=== PATIENT | female | born 1945 | race Asian ===

== ENCOUNTER 2016-12-10 09:49 | Outpatient (CLI) | payer OTHER | END 2016-12-10 19:12 | disposition home or self-care (01) | LOC: RAD 09:49 | DX: M85.89 Other specified disorders of bone density and structure, multiple sites (principal) ==

== ENCOUNTER 2017-06-12 12:26 | Outpatient (CLI) | payer OTHER | END 2017-06-12 21:11 | disposition home or self-care (01) | LOC: RAD 12:26 | DX: M17.0 Bilateral primary osteoarthritis of knee (principal) ==

== ENCOUNTER 2017-06-19 11:23 | Outpatient (CLI) | payer OTHER ==
[2017-06-19 12:06] LABS: PLATELET COUNT 254 K/uL (152-353); POTASSIUM 3.2 mmol/L (3.6-5.2)
== END 2017-06-19 12:25 | disposition home or self-care (01) ==
LOC: LABW 11:23
PROVIDERS: Internal Medicine Nephrology
DX: I12.9 Hypertensive chronic kidney disease with stage 1 through stage 4 chronic kidney disease, or unspecified chronic kidney disease (principal); N18.3 Chronic kidney disease, stage 3 (moderate); Z90.5 Acquired absence of kidney
CPT/HCPCS: 36415; 80053; 81000; 82306; 82570; 83970; 84100; 84155; 85027

== ENCOUNTER 2017-09-15 14:34 | Outpatient (CLI) | payer OTHER ==
[2017-09-15 14:51] LABS: PLATELET COUNT 212 K/uL (152-353)
[2017-09-15 15:09] LABS: POTASSIUM 3.9 mmol/L (3.6-5.2)
== END 2017-09-15 19:42 | disposition home or self-care (01) ==
LOC: LAB 14:34
PROVIDERS: Nurse Practitioner Family
DX: I10 Essential (primary) hypertension (principal); K75.4 Autoimmune hepatitis; E87.6 Hypokalemia; N28.89 Other specified disorders of kidney and ureter; Z79.899 Other long term (current) drug therapy; Z51.81 Encounter for therapeutic drug level monitoring; E55.9 Vitamin D deficiency, unspecified
CPT/HCPCS: 80053; 80061; 82306; 83036; 84436; 84443; 85027

== ENCOUNTER 2018-01-06 08:39 | Outpatient (CLI) | payer OTHER | END 2018-01-06 19:13 | disposition home or self-care (01) | LOC: US 08:39 | DX: I10 Essential (primary) hypertension (principal) | CPT/HCPCS: 93306 ==

== ENCOUNTER 2018-01-21 13:59 | Outpatient (CLI) | payer OTHER ==
[2018-01-21 15:03] LABS: POTASSIUM 3.8 mmol/L (3.6-5.2)
== END 2018-01-21 23:24 | disposition home or self-care (01) ==
LOC: LABW 13:59
PROVIDERS: Internal Medicine Cardiovascular Disease
DX: I10 Essential (primary) hypertension (principal); Z79.01 Long term (current) use of anticoagulants; Z51.81 Encounter for therapeutic drug level monitoring
CPT/HCPCS: 36415; 80048

== ENCOUNTER 2018-01-23 08:36 | Outpatient (CLI) | payer OTHER | END 2018-01-23 19:22 | disposition home or self-care (01) | LOC: MAMMO 08:36 | DX: Z12.31 Encounter for screening mammogram for malignant neoplasm of breast (principal); Z13.820 Encounter for screening for osteoporosis; M85.89 Other specified disorders of bone density and structure, multiple sites ==

== ENCOUNTER 2018-06-01 10:34 | Outpatient (CLI) | payer OTHER ==
[2018-06-01 11:13] LABS: POTASSIUM 4.5 mmol/L (3.6-5.2)
== END 2018-06-01 19:55 | disposition home or self-care (01) ==
LOC: LABW 10:34
PROVIDERS: Internal Medicine Cardiovascular Disease
DX: R60.0 Localized edema (principal); R06.09 Other forms of dyspnea; Z79.899 Other long term (current) drug therapy
CPT/HCPCS: 36415; 80048; 83880

== ENCOUNTER 2018-06-10 08:40 | Outpatient (CLI) | payer OTHER | END 2018-06-10 19:15 | disposition home or self-care (01) | LOC: RESP 08:40 | DX: I10 Essential (primary) hypertension (principal) | CPT/HCPCS: 93306 ==

== ENCOUNTER 2018-06-23 11:56 | Outpatient (CLI) | payer OTHER ==
[2018-06-23 12:25] LABS: PLATELET COUNT 249 K/uL (152-353); POTASSIUM 3.8 mmol/L (3.6-5.2)
== END 2018-06-23 21:22 | disposition home or self-care (01) ==
LOC: LABW 11:56
PROVIDERS: Internal Medicine Nephrology
DX: N18.3 Chronic kidney disease, stage 3 (moderate) (principal); I10 Essential (primary) hypertension
CPT/HCPCS: 36415; 80053; 80061; 82043; 82570; 84155; 85027

== ENCOUNTER 2018-07-29 12:22 | Outpatient (CLI) | payer OTHER | END 2018-07-29 21:16 | disposition home or self-care (01) | LOC: LABW 12:22 | PROVIDERS: Internal Medicine Cardiovascular Disease | DX: Z79.899 Other long term (current) drug therapy (principal) | CPT/HCPCS: 36415; 80048 ==

== ENCOUNTER 2018-09-18 08:35 | Outpatient (CLI) | payer OTHER ==
[2018-09-18 09:23] LABS: PLATELET COUNT 255 K/uL (152-353)
[2018-09-18 09:38] LABS: POTASSIUM 3.8 mmol/L (3.6-5.2)
== END 2018-09-18 18:56 | disposition home or self-care (01) ==
LOC: US 08:35 → LABW 08:35 → US 09:00
PROVIDERS: Physician Assistant
DX: Z00.00 Encounter for general adult medical examination without abnormal findings (principal); Z13.6 Encounter for screening for cardiovascular disorders; Z87.891 Personal history of nicotine dependence; N18.3 Chronic kidney disease, stage 3 (moderate); I10 Essential (primary) hypertension
CPT/HCPCS: 36415; 80053; 84443; 85027

== ENCOUNTER 2018-10-22 10:40 | Outpatient (CLI) | payer OTHER ==
[2018-10-22 11:05] LABS: PLATELET COUNT 224 K/uL (152-353)
[2018-10-22 11:12] LABS: POTASSIUM 4.2 mmol/L (3.6-5.2)
== END 2018-10-22 21:51 | disposition home or self-care (01) ==
LOC: LABW 10:40
PROVIDERS: Internal Medicine Nephrology
DX: M19.90 Unspecified osteoarthritis, unspecified site (principal); I10 Essential (primary) hypertension; N18.3 Chronic kidney disease, stage 3 (moderate); K73.1 Chronic lobular hepatitis, not elsewhere classified; Z88.9 Allergy status to unspecified drugs, medicaments and biological substances; E55.9 Vitamin D deficiency, unspecified
CPT/HCPCS: 36415; 80053; 82570; 84155; 85027

== ENCOUNTER 2019-02-10 11:25 | Outpatient (CLI) | payer OTHER ==
[2019-02-10 12:02] LABS: PLATELET COUNT 259 K/uL (152-353)
[2019-02-10 12:33] LABS: POTASSIUM 3.9 mmol/L (3.6-5.2)
== END 2019-02-10 23:38 | disposition home or self-care (01) ==
LOC: LABW 11:25
PROVIDERS: Internal Medicine Nephrology
DX: I12.9 Hypertensive chronic kidney disease with stage 1 through stage 4 chronic kidney disease, or unspecified chronic kidney disease (principal); N18.3 Chronic kidney disease, stage 3 (moderate); K73.1 Chronic lobular hepatitis, not elsewhere classified; Z88.9 Allergy status to unspecified drugs, medicaments and biological substances; E55.9 Vitamin D deficiency, unspecified; M15.8 Other polyosteoarthritis
CPT/HCPCS: 36415; 80053; 82570; 84155; 85027

== ENCOUNTER 2019-05-05 09:41 | Outpatient (CLI) | payer OTHER ==
[2019-05-05 10:04] LABS: PLATELET COUNT 224 K/uL (152-353)
[2019-05-05 10:14] LABS: POTASSIUM 4.3 mmol/L (3.6-5.2)
== END 2019-05-05 20:06 | disposition home or self-care (01) ==
LOC: LABW 09:41
PROVIDERS: Nurse Practitioner Family
DX: M17.0 Bilateral primary osteoarthritis of knee (principal); M19.041 Primary osteoarthritis, right hand; M19.042 Primary osteoarthritis, left hand; M85.89 Other specified disorders of bone density and structure, multiple sites; R53.83 Other fatigue
CPT/HCPCS: 36415; 80053; 85027; 85651; 86140

== ENCOUNTER 2019-05-10 09:41 | Outpatient (CLI) | payer OTHER | END 2019-05-10 20:16 | disposition home or self-care (01) | LOC: RAD 09:41 | DX: M85.89 Other specified disorders of bone density and structure, multiple sites (principal) ==

== ENCOUNTER 2019-06-14 12:53 | Outpatient (CLI) | payer OTHER ==
[2019-06-14 13:42] LABS: PLATELET COUNT 269 K/uL (152-353)
[2019-06-14 13:47] LABS: POTASSIUM 4.5 mmol/L (3.6-5.2)
== END 2019-06-14 20:00 | disposition home or self-care (01) ==
LOC: LABW 12:53
PROVIDERS: Internal Medicine Nephrology
DX: E55.9 Vitamin D deficiency, unspecified (principal); K73.1 Chronic lobular hepatitis, not elsewhere classified; I12.9 Hypertensive chronic kidney disease with stage 1 through stage 4 chronic kidney disease, or unspecified chronic kidney disease; N18.3 Chronic kidney disease, stage 3 (moderate); Z88.9 Allergy status to unspecified drugs, medicaments and biological substances; M19.90 Unspecified osteoarthritis, unspecified site
CPT/HCPCS: 36415; 80069; 81000; 82652; 83735; 85027

== ENCOUNTER 2019-06-21 10:25 | Outpatient (CLI) | payer OTHER | END 2019-06-21 20:23 | disposition home or self-care (01) | LOC: US 10:25 | DX: I12.9 Hypertensive chronic kidney disease with stage 1 through stage 4 chronic kidney disease, or unspecified chronic kidney disease (principal); N18.3 Chronic kidney disease, stage 3 (moderate) ==

== ENCOUNTER 2019-09-03 10:58 | Outpatient (CLI) | payer OTHER ==
[2019-09-03 11:55] LABS: POTASSIUM 3.8 mmol/L (3.6-5.2)
[2019-09-03 12:15] LABS: PLATELET COUNT 212 K/uL (152-353)
== END 2019-09-03 16:00 | disposition home or self-care (01) ==
LOC: LABW 10:58
PROVIDERS: Nurse Practitioner Family
DX: G47.8 Other sleep disorders (principal); M17.0 Bilateral primary osteoarthritis of knee; M19.041 Primary osteoarthritis, right hand; M19.042 Primary osteoarthritis, left hand; M79.7 Fibromyalgia
CPT/HCPCS: 36415; 80053; 85027; 85651; 86140

== ENCOUNTER 2019-12-20 09:43 | Outpatient (CLI) | payer OTHER ==
[2019-12-20 10:13] LABS: PLATELET COUNT 243 K/uL (152-353)
[2019-12-20 10:24] LABS: POTASSIUM 3.8 mmol/L (3.6-5.2)
== END 2019-12-20 19:37 | disposition home or self-care (01) ==
LOC: LABW 09:43
PROVIDERS: Internal Medicine
DX: E55.9 Vitamin D deficiency, unspecified (principal); K73.1 Chronic lobular hepatitis, not elsewhere classified; N18.3 Chronic kidney disease, stage 3 (moderate); Z88.9 Allergy status to unspecified drugs, medicaments and biological substances; N17.8 Other acute kidney failure; M19.90 Unspecified osteoarthritis, unspecified site; I12.9 Hypertensive chronic kidney disease with stage 1 through stage 4 chronic kidney disease, or unspecified chronic kidney disease
CPT/HCPCS: 36415; 80053; 81000; 82306; 82570; 83970; 84100; 84155; 85027

== ENCOUNTER 2020-01-17 10:24 | Outpatient (CLI) | payer OTHER ==
[2020-01-17 10:58] LABS: POTASSIUM 3.8 mmol/L (3.6-5.2)
[2020-01-17 10:59] LABS: PLATELET COUNT 235 K/uL (152-353)
== END 2020-01-17 20:46 | disposition home or self-care (01) ==
LOC: LABW 10:24
PROVIDERS: Nurse Practitioner Family
DX: M17.0 Bilateral primary osteoarthritis of knee (principal); M19.041 Primary osteoarthritis, right hand; M19.042 Primary osteoarthritis, left hand; M79.7 Fibromyalgia; M85.89 Other specified disorders of bone density and structure, multiple sites
CPT/HCPCS: 36415; 80053; 85027; 85651; 86140

== ENCOUNTER 2020-02-21 17:29 | Outpatient (CLI) | payer OTHER | END 2020-02-21 21:18 | disposition home or self-care (01) | LOC: LAB 17:29 | PROVIDERS: Nurse Practitioner | DX: Z00.00 Encounter for general adult medical examination without abnormal findings (principal); Z13.820 Encounter for screening for osteoporosis; Z79.899 Other long term (current) drug therapy | CPT/HCPCS: 80061; 82306; 84439; 84443 ==

== ENCOUNTER 2020-03-23 10:18 | Outpatient (CLI) | payer OTHER | END 2020-03-23 19:18 | disposition home or self-care (01) | LOC: MAMMO 10:18 | DX: Z12.31 Encounter for screening mammogram for malignant neoplasm of breast (principal) ==

== ENCOUNTER 2020-06-15 09:29 | Outpatient (CLI) | payer OTHER ==
[2020-06-15 10:32] LABS: PLATELET COUNT 216 K/uL (152-353)
[2020-06-15 10:41] LABS: POTASSIUM 3.7 mmol/L (3.6-5.2)
== END 2020-06-15 19:02 | disposition home or self-care (01) ==
LOC: LABW 09:29
PROVIDERS: Internal Medicine
DX: E66.9 Obesity, unspecified (principal); M17.0 Bilateral primary osteoarthritis of knee; R29.898 Other symptoms and signs involving the musculoskeletal system; I10 Essential (primary) hypertension; Z79.899 Other long term (current) drug therapy
CPT/HCPCS: 36415; 80053; 80061; 81000; 82085; 82550; 83036; 83735; 84439; 84443; 85027; 85379; 85651

== ENCOUNTER 2020-06-19 14:24 | Outpatient (CLI) | payer OTHER ==
[2020-06-19 15:02] LABS: PLATELET COUNT 234 K/uL (152-353)
[2020-06-19 15:51] LABS: POTASSIUM 3.6 mmol/L (3.6-5.2)
== END 2020-06-19 20:34 | disposition home or self-care (01) ==
LOC: LABW 14:24
PROVIDERS: Internal Medicine Nephrology
DX: E55.9 Vitamin D deficiency, unspecified (principal); I10 Essential (primary) hypertension; N17.9 Acute kidney failure, unspecified; M19.90 Unspecified osteoarthritis, unspecified site; D64.9 Anemia, unspecified
CPT/HCPCS: 36415; 80053; 81000; 82728; 83550; 83970; 84155; 85027

== ENCOUNTER 2020-06-30 09:37 | Outpatient (CLI) | payer OTHER | END 2020-06-30 19:08 | disposition home or self-care (01) | LOC: MRI 09:37 | DX: M51.16 Intervertebral disc disorders with radiculopathy, lumbar region (principal) | CPT/HCPCS: A9576 ==

== ENCOUNTER 2020-12-08 09:17 | Outpatient (CLI) | payer OTHER ==
[2020-12-08 09:54] LABS: PLATELET COUNT 216 K/uL (152-353)
== END 2020-12-08 21:18 | disposition home or self-care (01) ==
LOC: LABW 09:17
PROVIDERS: ATTEND Internal Medicine Nephrology
DX: E55.9 Vitamin D deficiency, unspecified (principal); K73.1 Chronic lobular hepatitis, not elsewhere classified; N18.30 Chronic kidney disease, stage 3 unspecified; Z88.9 Allergy status to unspecified drugs, medicaments and biological substances; N17.9 Acute kidney failure, unspecified; M19.90 Unspecified osteoarthritis, unspecified site; M47.816 Spondylosis without myelopathy or radiculopathy, lumbar region; I12.9 Hypertensive chronic kidney disease with stage 1 through stage 4 chronic kidney disease, or unspecified chronic kidney disease
CPT/HCPCS: 36415; 80053; 81000; 82043; 82306; 82570; 83970; 84100; 84155; 85027

== ENCOUNTER 2021-04-25 09:39 | Outpatient (CLI) | payer OTHER | END 2021-04-25 23:00 | disposition home or self-care (01) | LOC: MAMMO 09:39 | PROVIDERS: ATTEND Internal Medicine | DX: Z12.31 Encounter for screening mammogram for malignant neoplasm of breast (principal) ==

== ENCOUNTER 2021-05-14 09:11 | Outpatient (CLI) | payer OTHER | END 2021-05-14 20:13 | disposition home or self-care (01) | LOC: US 09:11 | PROVIDERS: ATTEND Nurse Practitioner | DX: R92.8 Other abnormal and inconclusive findings on diagnostic imaging of breast (principal) ==

== ENCOUNTER 2021-05-22 08:43 | Outpatient (CLI) | payer OTHER | END 2021-05-22 19:06 | disposition home or self-care (01) | LOC: RAD 08:43 | PROVIDERS: ATTEND Nurse Practitioner Family | DX: E55.9 Vitamin D deficiency, unspecified (principal); M85.89 Other specified disorders of bone density and structure, multiple sites; Z79.899 Other long term (current) drug therapy ==

== ENCOUNTER 2021-06-08 09:49 | Outpatient (CLI) | payer OTHER ==
[2021-06-08 10:09] LABS: PLATELET COUNT 204 K/uL (152-353)
[2021-06-08 10:29] LABS: POTASSIUM 3.8 mmol/L (3.6-5.2)
== END 2021-06-08 19:55 | disposition home or self-care (01) ==
LOC: LABW 09:49
PROVIDERS: ATTEND Internal Medicine
DX: I10 Essential (primary) hypertension (principal)
CPT/HCPCS: 36415; 80053; 80061; 81000; 84439; 84443; 85027

== ENCOUNTER 2021-06-20 10:38 | Outpatient (CLI) | payer OTHER ==
[2021-06-20 11:02] LABS: PLATELET COUNT 248 K/uL (152-353)
[2021-06-20 11:11] LABS: POTASSIUM 4.2 mmol/L (3.6-5.2)
== END 2021-06-20 19:18 | disposition home or self-care (01) ==
LOC: LABW 10:38
PROVIDERS: ATTEND Internal Medicine Nephrology
DX: E55.9 Vitamin D deficiency, unspecified (principal); K73.1 Chronic lobular hepatitis, not elsewhere classified; Z88.9 Allergy status to unspecified drugs, medicaments and biological substances; N17.9 Acute kidney failure, unspecified; N18.31 Chronic kidney disease, stage 3a; M19.90 Unspecified osteoarthritis, unspecified site; M47.816 Spondylosis without myelopathy or radiculopathy, lumbar region; I12.9 Hypertensive chronic kidney disease with stage 1 through stage 4 chronic kidney disease, or unspecified chronic kidney disease
CPT/HCPCS: 36415; 80053; 81000; 82306; 82570; 83970; 84155; 85027

== ENCOUNTER 2021-11-21 10:48 | Outpatient (CLI) | payer OTHER ==
[2021-11-21 11:10] LABS: PLATELET COUNT 204 K/uL (152-353)
== END 2021-11-21 18:58 | disposition home or self-care (01) ==
LOC: LABW 10:48
PROVIDERS: ATTEND Internal Medicine
DX: I10 Essential (primary) hypertension (principal); G47.00 Insomnia, unspecified; M35.89 Other specified systemic involvement of connective tissue
CPT/HCPCS: 36415; 80053; 80061; 81000; 84439; 84443; 85027

== ENCOUNTER 2021-12-20 12:46 | Outpatient (CLI) | payer OTHER | END 2021-12-20 22:08 | disposition home or self-care (01) | LOC: MAMMO 12:46 | PROVIDERS: ATTEND Internal Medicine | DX: R92.8 Other abnormal and inconclusive findings on diagnostic imaging of breast (principal) | CPT/HCPCS: G0279 ==

== ENCOUNTER 2021-12-24 11:17 | Outpatient (CLI) | payer OTHER ==
[2021-12-24 11:46] LABS: PLATELET COUNT 210 K/uL (152-353)
[2021-12-24 11:58] LABS: POTASSIUM 3.6 mmol/L (3.6-5.2)
== END 2021-12-24 18:59 | disposition home or self-care (01) ==
LOC: LABW 11:17
PROVIDERS: ATTEND Internal Medicine Nephrology
DX: E55.9 Vitamin D deficiency, unspecified (principal); K73.1 Chronic lobular hepatitis, not elsewhere classified; Z88.9 Allergy status to unspecified drugs, medicaments and biological substances; E87.3 Alkalosis; N17.9 Acute kidney failure, unspecified; N18.31 Chronic kidney disease, stage 3a; M19.90 Unspecified osteoarthritis, unspecified site; M47.816 Spondylosis without myelopathy or radiculopathy, lumbar region; I12.9 Hypertensive chronic kidney disease with stage 1 through stage 4 chronic kidney disease, or unspecified chronic kidney disease
CPT/HCPCS: 36415; 80053; 82306; 82570; 83970; 84156; 85027

== ENCOUNTER 2022-06-05 10:21 | Outpatient (CLI) | payer OTHER ==
[2022-06-05 10:39] LABS: PLATELET COUNT 232 K/uL (152-353)
== END 2022-06-05 19:32 | disposition home or self-care (01) ==
LOC: LABW 10:21
PROVIDERS: ATTEND Internal Medicine
DX: D72.828 Other elevated white blood cell count (principal)
CPT/HCPCS: 36415; 85027

== ENCOUNTER 2022-06-28 10:28 | Outpatient (CLI) | payer OTHER ==
[2022-06-28 10:59] LABS: PLATELET COUNT 223 K/uL (152-353)
[2022-06-28 11:07] LABS: POTASSIUM 3.7 mmol/L (3.6-5.2)
== END 2022-06-28 19:05 | disposition home or self-care (01) ==
LOC: LABW 10:28
PROVIDERS: ATTEND Internal Medicine Nephrology
DX: E55.9 Vitamin D deficiency, unspecified (principal); K73.1 Chronic lobular hepatitis, not elsewhere classified; Z88.9 Allergy status to unspecified drugs, medicaments and biological substances; E87.3 Alkalosis; N17.9 Acute kidney failure, unspecified; N18.31 Chronic kidney disease, stage 3a; M19.90 Unspecified osteoarthritis, unspecified site; M47.816 Spondylosis without myelopathy or radiculopathy, lumbar region; I12.9 Hypertensive chronic kidney disease with stage 1 through stage 4 chronic kidney disease, or unspecified chronic kidney disease
CPT/HCPCS: 36415; 80053; 81002; 82306; 82570; 83970; 84156; 85027

== ENCOUNTER 2022-12-30 13:13 | Outpatient (CLI) | payer OTHER ==
[2022-12-30 13:42] LABS: PLATELET COUNT 218 K/uL (152-353)
[2022-12-30 14:41] LABS: POTASSIUM 3.5 mmol/L (3.6-5.2)
== END 2022-12-30 19:02 | disposition home or self-care (01) ==
LOC: LABW 13:13
PROVIDERS: ATTEND Internal Medicine Nephrology
DX: E55.9 Vitamin D deficiency, unspecified (principal); K73.1 Chronic lobular hepatitis, not elsewhere classified; Z88.9 Allergy status to unspecified drugs, medicaments and biological substances; E87.3 Alkalosis; N17.9 Acute kidney failure, unspecified; N18.31 Chronic kidney disease, stage 3a; M19.90 Unspecified osteoarthritis, unspecified site; M47.816 Spondylosis without myelopathy or radiculopathy, lumbar region; I12.9 Hypertensive chronic kidney disease with stage 1 through stage 4 chronic kidney disease, or unspecified chronic kidney disease
CPT/HCPCS: 36415; 80069; 81002; 82306; 82570; 83970; 84156; 85027

== ENCOUNTER 2023-05-09 11:32 | Outpatient (CLI) | payer OTHER ==
[2023-05-09 11:55] LABS: PLATELET COUNT 223 K/uL (152-353)
[2023-05-09 13:11] LABS: POTASSIUM 3.6 mmol/L (3.6-5.2)
== END 2023-05-09 19:19 | disposition home or self-care (01) ==
LOC: LABW 11:32
PROVIDERS: ATTEND Internal Medicine
DX: I10 Essential (primary) hypertension (principal)
CPT/HCPCS: 36415; 80053; 80061; 81002; 84439; 84443; 85027

== ENCOUNTER 2023-06-05 10:42 | Outpatient (CLI) | payer OTHER | END 2023-06-05 19:58 | disposition home or self-care (01) | LOC: RAD 10:42 | PROVIDERS: ATTEND Nurse Practitioner Family | DX: E55.9 Vitamin D deficiency, unspecified (principal); M17.0 Bilateral primary osteoarthritis of knee; M35.1 Other overlap syndromes; M85.89 Other specified disorders of bone density and structure, multiple sites; Z79.899 Other long term (current) drug therapy ==